=== PATIENT | female | born 1995 | race Caucasian/White ===

== ENCOUNTER 2017-11-28 15:26 | Outpatient (REF) | payer SELFPAY ==
--- NOTE | 2017-11-28 15:00 | PAPFT_PTH ---
PATIENT: Ghada Kirk LOC: [facility] U#:[id number] AGE/SX: 22/F ROOM: RE11/28/[address]: Robin Thomas RN : 1995 BED: DIS: 11/28/2017 SPEC #: [id number] RECD: 11/28/17 18:08 STATUS: WHITNEY REMelonie #: [id number] ALICIA: 11/28/17 15:[address]: Robin Thomas DEPT: [facility] Cytology RECD BY: Brandi Pal ENTERED: 11/28/17 18:08 SP TYPE: PAPFT PETROS DR: Jeniffer Gomez Tissues: 1 - CX/ENDOCX FOR PAP SMEARS Procedures: PAP THIN PREP/UVM Screening Comments: [id number]
[2017-11-28 18:24] LABS: *AMPHETAMINES SCREEN URINE Negative (Negative); *BARBITURATES SCREEN URINE Negative (Negative); *BENZODIAZEPINES SCREEN URINE Negative (Negative); Cannabinoids THC Negative (Negative); Cocaine Screen,Urine Negative (Negative); METHADONE URINE SCREEN Negative (Negative); OPIATES URINE SCREEN Negative (Negative)
[2017-11-28 18:27] LABS: Tricyclic Antidepressants Negative (Negative)
[2017-11-30 13:52] LABS: Chlamydia Result Negative; GC Result Negative; Specimen Description CERVIX
[2017-12-03 20:43] LABS: Buprenorphine Negative; Norbuprenorphine Negative
== END 2017-11-28 15:27 ==
LOC: LBN 15:26
PROVIDERS: Visit Provider Advanced Practice Midwife
DX: Z34.91 Encounter for supervision of normal pregnancy, unspecified, first trimester (principal); Z11.3 Encounter for screening for infections with a predominantly sexual mode of transmission; Z12.4 Encounter for screening for malignant neoplasm of cervix
CPT/HCPCS: 80307; 87491; 87591; 88142; 87086

== ENCOUNTER 2017-12-26 11:13 | Outpatient (CLI) | payer OTHER, SELFPAY ==
[2017-12-26 12:01] LABS: Abs Immature Grans 0.02 k/cumm (0.0-0.09); Absolute Basophil Count 0.01 k/cumm (0.0-0.2); Absolute Eosinophil Count 0.16 k/cumm (0.0-0.7); Absolute Lymphocyte Count 1.62 k/cumm (1.2-3.4); Absolute Monocyte Count 0.57 k/cumm (0.11-0.7); Absolute Neutrophil Count 7.39 k/cumm (1.2-6.7); Basophils % 0.1; Eosinophils % 1.6; HCT 34.8 % (36.0-46.0); HGB 11.8 g/dL (12.0-15.5); Immature Grans % 0.2; Lymphocytes % 16.6; Mean Corp. HGB Concentration 33.9 g/dL (32.0-36.0); Mean Corpuscular Hemoglobin 29.9 pg (27.0-33.0); Mean Corpuscular Volume 88.1 fL (80-95); Mean Platelet Volume 9.7 fL (8.0-11.0); Monocytes % 5.8; Neutrophils % 75.7; Platelet Count 221 x1000/uL (130-400); RBC 3.95 m/cumm (4.00-5.20); RBC Distribution Width 12.9 % (11.7-14.6); White Blood Cell Count 9.77 k/cumm (4.4-10.8)
[2017-12-26 13:03] LABS: TSH (W/Ref FT4) 1.95 uIU/mL (0.358-3.74)
[2017-12-27 11:38] LABS: Hepatitis B Surface Ag Negative (NEGAT)
[2017-12-27 12:07] LABS: HIV-1/2 Ag & Ab Screen Negative (NEGAT); Hepatitis C Ab w Rflx HCV PCR Negative (NEGAT)
[2017-12-27 13:24] LABS: Syphilis Serology (RPR) Negative (Negative)
[2017-12-27 13:29] LABS: Rubella IgG Ab (UVM) Positive
== END 2017-12-26 11:33 ==
PROVIDERS: Advanced Practice Midwife; Visit Provider Advanced Practice Midwife
DX: Z34.91 Encounter for supervision of normal pregnancy, unspecified, first trimester (principal); Z01.84 Encounter for antibody response examination
CPT/HCPCS: 36415; 80055; 86850; 86900; 86901; 84443

== ENCOUNTER 2018-01-05 12:11 | Outpatient (CLI) | payer OTHER, SELFPAY ==
[2018-01-08 12:47] LABS: AFP 41.9 ng/mL; Calculated age at EDD 24 years; Cigarette smoking status non-smoker; GA used in risk estimate Scan estimate; INHIBIN 152 pg/mL; IVF Pregnancy No; Initial or repeat testing Initial testing; Insulin dependent diabetes No; Maternal Weight 167 lbs; Number of Fetuses 1; Physician Phone Number 802-748-7300; Prev Down(T21)/Trisomy Pregnan No; Prev Pregnancy w/NTD No; RECOMMENDED FOLLOW UP None.; Results Summary Normal risk; hCG, TOTAL 20.3 IU/mL; hCG, TOTAL MoM 0.98 MoM; uE3 1.26 ng/mL; uE3 MoM 0.86 MoM
[2018-01-12 08:10] LABS: Result Summary NEGATIVE; Specimen WB Whole Blood
== END 2018-01-05 12:31 ==
PROVIDERS: Visit Provider Advanced Practice Midwife
DX: Z34.92 Encounter for supervision of normal pregnancy, unspecified, second trimester (principal); Z36.89 Encounter for other specified antenatal screening; Z13.228 Encounter for screening for other metabolic disorders
CPT/HCPCS: 36415; 81511; 81220

== ENCOUNTER 2018-01-10 00:24 | Outpatient (CLI) | payer OTHER, SELFPAY ==
--- NOTE | 2018-01-10 10:18 | DI.US_ITS ---
Many abnormalities cannot be diagnosed. A normal exam does not exclude a congenital anomaly. Radiology No. LMP: Exam Date: 01/10/18 [facility] wks days on EDC ([facility]) 06/04/18 Confirmed: HISTORY: SUPERVISION OF NORMAL ,Z34.90 ---- PREDICTED GESTATIONAL AGE NUMBER 19.2 weeks with a range of 18.2 week to 20.2 weeks. 1 Determined by___1STUS___LMP___HISTORY Info. pertaining to fetus # PLACENTA PRESENTATION Grade I Cephalic__X_ Anterior___Posterior___ Breech____ Right Left Transverse(head right___ Fundal___Low-lying___Previa___ Transverse(head left___ Varying BIOMETRY AMNIOTIC FLUID BPD: 45 mm 19.4 weeks Normal HC: 172 mm 19.5 weeks AC: 140 mm 19.3 weeks FL: 130 mm 19.2 weeks AMNIOTIC FLUID INDEX >26 WK CRL: mm weeks Cisterna Magna: 19 mm CI: 76 RUQ: LUQ Cerebellum: 0.31 cm EFW: 290 grams 52nd Percentile RLQ: LLQ Total: cms Composite AGE= 19.4 wks EDC by US__06/02/18 BIOPHYSICAL PROFILE ANATOMY IDENTIFIED SCORE 0/2 Heart: 4-Chamber__X_Rate:BPM___155__ LVOT: X____ RVOT:____X____ Amniotic Fluid(>2cms)____ Stomach:___X____ Kidneys:___X____ Respirations (>30 secs) Bladder:____X____ Post. Fossa:___X Body Flex/Extension 3 vessel cord:__X Ventricles: X cord insertion:____X_ Lips:_NOT SEEN___ Extremity Flex/Extension spinal morphology:__X Nose: NOT SEEN Total Score= Palate:__NOT WELL SEEN NS=not seen Routine examination was performed. There is a single living intrauterine gestation. Estimated sonographic age is 19 weeks 4 days. The fetus is in the cephalic presentation. heart rate is 155 beats per minute. No abnormalities were identified. The face and palate were not visualized well on this examination and the patient is scheduled to return 01/16 for repeat evaluation. The placenta shows no evidence of previa. Amniotic fluid is within normal limits. Estimated weight is 296 grams. IMPRESSION: Single living intrauterine gestation. Estimated sonographic age is 19 weeks 4 days. The patient is scheduled to return for evaluation of the facial structures on 01/16/18.
== END 2018-01-10 00:44 ==
PROVIDERS: Visit Provider Advanced Practice Midwife
DX: Z34.92 Encounter for supervision of normal pregnancy, unspecified, second trimester (principal)
CPT/HCPCS: 76805

== ENCOUNTER 2018-01-16 00:41 | Outpatient (CLI) | payer OTHER, SELFPAY ==
--- NOTE | 2018-01-16 09:48 | DI.US_ITS ---
SYMPTOMS/DIAGNOSIS: FACIAL F/U LIMITED OB ULTRASOUND: Many abnormalities cannot be diagnosed. A normal exam does not exclude a congenital anomaly. Radiology No. [id number] LMP: Exam Date: 01/16/18 [facility] wks days on EDC ([facility]) 06/04/18 Confirmed: HISTORY: ---- PREDICTED GESTATIONAL AGE NUMBER 20+1 weeks with a range of 19+1 weeks to 21+1 weeks. 1 Determined by_X__1STUS___LMP___HISTORY PLACENTA PRESENTATION Grade I Cephalic___ Anterior___Posterior_X__ Breech____ Right Left Transverse(head right)_X__ Fundal___Low-lying___Previa___ Transverse(head left___ Varying BIOMETRY AMNIOTIC FLUID BPD: mm weeks Normal HC: mm weeks AC: mm weeks FL: mm weeks AMNIOTIC FLUID INDEX >26 WK CRL: mm weeks Cisterna Magna: mm CI: RUQ: LUQ Cerebellum: cm EFW: grams Percentile RLQ: LLQ Total: cms Composite AGE= 20+1 wks EDC by US: 06/04/18 BIOPHYSICAL PROFILE ANATOMY IDENTIFIED SCORE 0/2 Heart: 4-Chamber___Rate:BPM 149 LVOT: RVOT: Amniotic Fluid(>2cms)____ Stomach: Kidneys: Respirations (>30 secs) Bladder: Post. Fossa: Body Flex/Extension 3 vessel cord: Ventricles: cord insertion: Lips:_X___ Extremity Flex/Extension spinal morphology: Nose:__X___ Total Score= Palate:___X____ NS=not seen
== END 2018-01-16 01:01 ==
PROVIDERS: Visit Provider Advanced Practice Midwife
DX: Z34.92 Encounter for supervision of normal pregnancy, unspecified, second trimester (principal); Z36.2 Encounter for other antenatal screening follow-up
CPT/HCPCS: 76815

== ENCOUNTER 2018-03-16 10:58 | Outpatient (CLI) | payer OTHER, MEDICAID, SELFPAY ==
[2018-03-16 12:27] LABS: HCT 33.3 % (36.0-46.0); Mean Corpuscular Hemoglobin 28.8 pg (27.0-33.0); Mean Corpuscular Volume 87.2 fL (80-95); Mean Platelet Volume 10.4 fL (8.0-11.0); Platelet Count 218 x1000/uL (130-400); RBC 3.82 m/cumm (4.00-5.20); RBC Distribution Width 12.6 % (11.7-14.6); White Blood Cell Count 10.11 k/cumm (4.4-10.8)
[2018-03-16 12:31] LABS: Glucose,1 Hr (Glucola) 97 mg/dL (80-140)
== END 2018-03-16 11:18 ==
PROVIDERS: Visit Provider Nurse Practitioner
DX: Z34.93 Encounter for supervision of normal pregnancy, unspecified, third trimester (principal)
CPT/HCPCS: 36415; 82950; 85027; 86850

== ENCOUNTER 2018-03-23 09:11 | Outpatient (CLI) | payer OTHER, MEDICAID, SELFPAY | END 2018-03-23 09:31 | PROVIDERS: Visit Provider Nurse Practitioner | DX: Z34.93 Encounter for supervision of normal pregnancy, unspecified, third trimester (principal) | CPT/HCPCS: 36415; 86850; 90384 ==

== ENCOUNTER 2018-05-11 11:44 | Outpatient (REF) | payer MEDICAID, SELFPAY | END 2018-05-11 12:04 | LOC: LBN 11:44 | PROVIDERS: Visit Provider Advanced Practice Midwife | DX: Z34.93 Encounter for supervision of normal pregnancy, unspecified, third trimester (principal); Z36.85 Encounter for antenatal screening for Streptococcus B | CPT/HCPCS: 87081 ==

== ENCOUNTER 2018-06-01 19:55 | Inpatient (IN) | payer MEDICAID, SELFPAY ==
[2018-06-01] MEDS: Lactated Ringers 1,000 ML 125 ML IV (22:31)
[2018-06-01 22:41] LABS: HGB 10.3 g/dL (12.0-15.5); Mean Corp. HGB Concentration 32.2 g/dL (32.0-36.0); Mean Corpuscular Hemoglobin 25.9 pg (27.0-33.0); Mean Corpuscular Volume 80.6 fL (80-95); Mean Platelet Volume 10.9 fL (8.0-11.0); Platelet Count 243 x1000/uL (130-400); RBC 3.97 m/cumm (4.00-5.20); RBC Distribution Width 13.3 % (11.7-14.6); White Blood Cell Count 14.89 k/cumm (4.4-10.8)
[2018-06-02] MEDS: Lactated Ringers 1,000 ML 125 ML IV (02:33)
[2018-06-02] MEDS: Oxytocin 10 UNITS/ML VIAL (04:58)
[2018-06-02 07:30] VITALS: RESP 16
[2018-06-02] MEDS: Hamamelis Leaf/Glycerin 100 EACH BOX PR (08:35)
[2018-06-02] MEDS: Acetaminophen 325 MG TAB 650 MG PO ×2 (16:05→21:25)
[2018-06-02] MEDS: Normal Saline Flush 10 ML SYR IVP ×2 (16:05→21:27)
[2018-06-03] MEDS: Acetaminophen 325 MG TAB 650 MG PO ×2 (07:49→12:21)
[2018-06-03 07:51] LABS: HGB 9.9 g/dL (12.0-15.5); Mean Corp. HGB Concentration 31.9 g/dL (32.0-36.0); Mean Corpuscular Hemoglobin 26.2 pg (27.0-33.0); Mean Platelet Volume 10.5 fL (8.0-11.0); Platelet Count 226 x1000/uL (130-400); RBC 3.78 m/cumm (4.00-5.20); RBC Distribution Width 13.6 % (11.7-14.6); White Blood Cell Count 13.37 k/cumm (4.4-10.8)
[2018-06-03] MEDS: Hamamelis Leaf/Glycerin 100 EACH BOX PR (11:04)
[2018-06-03] MEDS: Ibuprofen 600 MG TAB PO (11:04)
== END 2018-06-03 14:45 | disposition home or self-care (01) | DRG 807 ==
PROVIDERS: Admitting Provider Advanced Practice Midwife; Visit Provider Advanced Practice Midwife
DX: O99.62 Diseases of the digestive system complicating childbirth (principal); Z37.0 Single live birth; Z3A.39 39 weeks gestation of pregnancy; O99.354 Diseases of the nervous system complicating childbirth; K21.9 Gastro-esophageal reflux disease without esophagitis; G47.00 Insomnia, unspecified; Z30.430 Encounter for insertion of intrauterine contraceptive device
CPT/HCPCS: 58300; 36415; 85027; 85461; 86850; 86900; 86901; J2590

== ENCOUNTER 2018-07-17 15:49 | Outpatient (REF) | payer OTHER, MEDICAID, SELFPAY | END 2018-07-17 16:09 | LOC: LBN 15:49 | PROVIDERS: Visit Provider Advanced Practice Midwife | DX: R69 Illness, unspecified (principal) | CPT/HCPCS: 87480; 87510; 87660 ==

== ENCOUNTER 2022-06-27 10:54 | Outpatient (REF) | payer MEDICAID, SELFPAY ==
--- NOTE | 2022-06-27 10:00 | PAPFT_PTH ---
PATIENT: Ghada Kirk LOC: [facility] U#:[id number] AGE/SX: 27/F ROOM: RE06/27/[address]: Cecilia Loya : 1995 BED: DIS: 06/27/2022 SPEC #: [id number] RECD: 06/27/22 17:55 STATUS: WHITNEY REQ #: [id number] ALICIA: 06/27/22 10:[address]: Cecilia Ramon DEPT: [facility] Cytology RECD BY: Brandi Pal ENTERED: 06/27/22 17:55 SP TYPE: PAPFT PETROS DR: Azul Orellana APRN Tissues: 1 - CX/ENDOCX FOR PAP SMEARS Procedures: PAP THIN PREP/UVM Screening Comments: [id number]
== END 2022-06-27 10:55 | disposition home or self-care (01) ==
LOC: LBN 10:54
PROVIDERS: PCP Nurse Practitioner; Visit Provider Advanced Practice Midwife
DX: N89.8 Other specified noninflammatory disorders of vagina (principal); Z12.4 Encounter for screening for malignant neoplasm of cervix
CPT/HCPCS: 88142; 87480; 87510; 87660

== ENCOUNTER 2022-10-27 15:22 | Emergency (ER) | payer MEDICAID, SELFPAY ==
[2022-10-27 15:23] VITALS: BP 121/88; PULSE 83; RESP 14; TEMP 36.4; O2SAT 100
--- NOTE | 2022-10-27 15:33 | ED.GENADUL_ITS ---
Discharge Plan Disposition Patient Disposition: Home Condition: Stable Discharge Details Clinical Impression: Abnormal vaginal bleeding Primary Care Provider: Azul Orellana ED Provider: Aide Longoria Home Meds and New Rx's Prescriptions: No Action Mirena 20 mcg/24 hours (5 yrs) 52 mg intrauterine device 1 device IY ONCE multivitamin tablet 1 tab PO DAILY Discharge Instructions Instructions: Abnormal (Dysfunctional) Uterine Bleeding (ED) Additional Instructions: Ultrasound shows a low lying IUD, no evidence of ovarian cysts. Keep yourself hydrated and follow up with BANQUET KITCHEN SUPERVISOR as needed. Return for any dizziness, lightheadedness, or bleeding more than 1 pad an hour. Please take Tylenol or Ibuprofen with food every 4-6 hours as needed for pain and swelling. Follow up with primary care provider in 3-5 days. Return to ED sooner if any worsening or concerns. Increase oral fluids. Referrals: Azul Orellana, LABORATORY DEVELOPMENT TECHNICIAN [Primary Care Provider] - 2 weeks Medical Decision Making 27 year old female presents to ED with Vaginal bleeding, cramping which began last night. Patient does have an IUD that was placed in 2019 and gets irregular periods. She reports that she has gone through a super tampon in less than 3 hours. She did take a Pamprin last night which did little to nothing to help the cramping. She denies any dizziness lightheadedness or fainting. She is sexually active. Vital signs are stable. Work-up ordered including urine test, CBC CMP IV normal saline. Medical diagnosis includes but not limited to menorrhagia, abnormal vaginal bleeding, ectopic , miscarriage. CBC shows no leukocytosis H&H within normal limits, neutrophils 6.89, CMP largely within normal limits. Ultrasound shows low-lying IUD as noted below. I did offer to remove the IUD which patient declined at this time. On reevaluation she feels much better. She has received a liter of normal saline. Did discuss home care and strict return instructions she verbalized understanding. Findings are most consistent with dysmenorrhagia This text was generated using [employer] Mediaation system, please disregard any oddities of phrase or misspellings. Imaging Data Radiologic Study: Imaging: Ultrasound Radiologist's impression: FINDINGS: UTERUS: Position: Anteverted. Size: 8.3 long by 4.3 AP by 4.8 transverse cm Endometrium: 0.5 cm. Normal for patient's menstrual status. The IUD is seen in the lower uterine segment of the endometrial canal. Myometrium: Unremarkable. Cervix: Unremarkable. OVARIES: Right: 3 x 1.7 x 2.2 cm Cyst or mass: No suspicious cystic or solid masses. Left: 2.7 x 2.4 x 2.3 cm Cyst or mass: No suspicious cystic or solid masses. DOPPLER: Color: Symmetric and uniform flow to both ovaries. CUL-DE-SAC: Free fluid: None. Other: None. IMPRESSION: 1. Normal-appearing uterus with endometrial stripe within normal limits. 2. Unremarkable bilateral ovaries. 3. The IUD does not appear to be in good position. It lies in the lower uterine segment portion of the endometrial canal. Lab Data Lab results reviewed: Yes I reviewed the patient's lab results. Labs: Laboratory Tests Range/Units 10/27/22 10/27/22 17:34 17:34 WBC (4.4-10.8) 10^3/uL 10.12 RBC (3.93-5.22) 10^6/uL 4.52 Hgb (11.2-15.7) g/dL 13.3 Hct (36.0-46.0) % 39.2 MCV (80-95) fL 87 MCH (27.0-33.0) pg 29.4 MCHC (32.0-36.0) % 33.9 RDW (11.7-14.6) % 12.2 Plt Count (130-400) 10^3/uL 276 MPV (8.0-11.0) fL 9.7 Immature Gran % 0.5 Neutrophils % 68.1 Lymphocytes % 24.3 Monocytes % 6.2 Eosinophils % 0.6 Basophils % 0.3 Nucleated RBC % (0.0-0.3) % 0.0 Absolute Neutrophils (1.2-6.7) 10^3/uL 6.89 H Absolute Lymphocytes (1.2-3.4) 10^3/uL 2.46 Absolute Monocytes (0.1-0.8) 10^3/uL 0.63 Absolute Eosinophils (0.0-0.7) 10^3/uL 0.06 Absolute Basophils (0.0-0.2) 10^3/uL 0.03 Sodium (136-145) mmol/L 141 Potassium (3.5-5.1) mmol/L 3.7 Chloride (98-107) mmol/L 105 Carbon Dioxide (21.0-32.0) mmol/L 28.0 Anion Gap (3-11) mmol/L 8.0 BUN (7-18) mg/dL 14 Creatinine (0.55-1.02) mg/dL 0.8 Est GFR (CKD-EPI 2020) (mL/min/1.73m2) 102.86 Glucose (74-106) mg/dL 98 Calcium (8.5-10.1) mg/dL 9.3 Total Bilirubin (0.2-1.0) mg/dL 0.3 AST (15-37) U/L 12 L ALT (14-59) U/L 21 Alkaline Phosphatase (46-116) U/L 49 Total Protein (6.4-8.2) g/dL 8.2 Albumin (3.4-5.0) g/dL 4.5 HPI General Mode of arrival: ambulatory . Date/Time Provider Initiated Documentation: 10/27/22 15:29 . Limitations to Documentation: no limitations . Information obtained by: patient, RN notes reviewed and old records reviewed . HPI Narrative: 27 year old female presents to ED with Vaginal bleeding, cramping which began last night. Patient does have an IUD that was placed in 2018 and gets irregular periods. She reports that she has gone through a super tampon in less than 3 hours. She did take a Pamprin last night which did little to nothing to help the cramping. She denies any dizziness lightheadedness or fainting. She is sexually active. Vital signs are stable. Related Data Home Medications Medication Instructions Recorded Confirmed levonorgestrel 21 mcg/24 hours (8 1 device intrauterine ONCE 07/17/18 10/27/22 yrs) 52 mg intrauterine device (Mirena) multivitamin 1 tab PO DAILY 07/17/18 10/27/22 Allergies Allergy/AdvReac Type Severity Reaction Status Date / Time Penicillins Allergy Severe Hives Verified 06/27/22 09:39 General Stated Complaint: BANQUET KITCHEN SUPERVISOR LIZETTE: 3 Review of Systems All systems reviewed & are unremarkable except as noted in HPI and below Gastrointestinal Gastrointestinal: Reports abdominal pain Genitourinary Genitourinary: Reports as per HPI and Reports menorrhagia PFSH All Active Problems (Updated 10/27/22 @ 18:51 by Aide Longoria NP) Abnormal vaginal bleeding (Acute) Vaginal discharge (Acute) Medical History (Updated 10/27/22 @ 18:51 by Aide Longoria NP) Dysuria Insomnia Reflux esophagitis Surgical History (Updated 05/31/22 @ 09:17 by Azul Orellana NP) History of repair of ACL w/Meniscus Repair- Left, age 21 Family History (Updated 05/30/22 @ 13:42 by Emily Monet) Father Depression Paternal Grandfather Alcohol use disorder Depression Maternal Grandmother Cancer Lung Paternal Grandmother Depression Social History (Updated 05/31/22 @ 09:07 by Lainey Bull LPN) Smoking/Tobacco Use Status: Never Smoking risk assessment performed?: Yes Alcohol Intake: current Alcohol Intake frequency: holidays/special occasions only Alcohol type: beer Drug use: Never Substance use type: does not use Adopted: No Caregiver/Support person: No Foster care: No Household members: significant other and family Housing: house Number of Children: 1 Communication Needs: None Education Level: college Details: Bachelor's Degree Do you need help understanding health information?: Never current occupation: Med Asst, [employer] Pets and animals: Yes Pets and animals: dog(s) Sexually active: Yes Do you think of yourself as: straight/heterosexual Current gender identity: female What is your relationship status?: living with partner How often do you talk on the phone with friends or family?: three or more times per week How often do you get together with friends or relatives?: twice per week Do you belong to any clubs or organized social groups?: no Panel score (0-1 are the most socially isolated patients): 2 What type of physical activity do you participate in: weight lifting and running Duration: 45-60 minutes/day Frequency: 5-6 times per week Sandee/Oriental Orthodox: None Special sandee needs: No Seatbelt use: always Helmet use: Yes Drive intox or ride w/intox cement mixer driver: No Water heater temp set <120 deg: No Working smoke detector in home: Yes Fire extinguisher in home: Yes Carbon monox detector in home: Yes Firearms in home: No Do you feel safe at home: Yes Do you feel safe in your relationship?: Yes Victim of physical abuse: No Victim of emotional abuse: No Victim of sexual abuse: No History History 2 Para 1 Hx # Term Pregnancies 1 Multiple births 0 Hx # Pregnancies 0 Ectopic pregnancies 0 AB induced 0 Hx Number of Living Children 1 AB spontaneous 1 Past Pregnancies Del. Date GA/Weeks # Preg Succ Route Wgt Sex Labor Lgth Anesth esia Location Prov Complic 06/02/18 39 No vaginal 3260.195 g Female 16 hrs. 5 min. Robin Johnson cnm Delivery Date: 06/02/18 Last Updated by: Cecilia Loya CNM poor relief from epidural. Used nitrous oxide after epidural. vomiting from nitrous. Sublimity Exam Narrative Exam Narrative: Constitutional: Alert and oriented x3. Appears stated age. Normal body habitus. Head: Normocephalic, no trauma. Eyes: Pupils PERRL, Red reflex noted, EOM's intact. Eyelids symmetrical without lesions, discharge, or swelling. ENT: Bilateral TM's WNL, External ear normal to inspection, no mastoid TTP, swelling, or erythema, Nasal turbinates WNL, no nasal discharge. Normal dentition, Posterior pharynx WNL, no exudate. Chest: RRR, Normal S1, S2, distal pulses intact. Resp: Lungs clear to auscultation bilaterally, no wheezes, rales, or rhonchi. Abdomen: Soft, non-distended, Normoactive bowel sounds all 4 quads. Mild amount of tenderness suprapubically with palpation. Musculoskeletal: Normal gait, 5/5 strength to all four extremities. Skin: No suspicious rashes or lesions. Capillary refill less than 2 sec. Neurologic: Cranial nerves II-XII intact. Alert and oriented x 3. Motor: No deficits noted. Sensory: Intact bilaterally all 4 extremities. Hematologic/Lymphatic: No ecchymosis, no lymphadenopathy. Course Vital Signs Vital signs: Vital Signs Temperature 36.4 C L 10/27/22 15:23 Pulse 83 10/27/22 15:23 Respiratory Rate 14 10/27/22 15:23 Blood Pressure 121/88 10/27/22 15:23 Pulse Oximetry 100 10/27/22 15:23 Temperature 36.4 C L 10/27/22 15:23 Temperature Source Skin 10/27/22 15:23 Pulse 83 10/27/22 15:23 Respiratory Rate 14 10/27/22 15:23 Blood Pressure 121/88 10/27/22 15:23 Blood Pressure Position Sitting 10/27/22 15:23 Pulse Oximetry 100 10/27/22 15:23 Oxygen Delivery Method Room Air 10/27/22 15:23 Oxygen Flow Rate 0 10/27/22 15:23 Pain Level 7 10/27/22 15:23
--- NOTE | 2022-10-27 15:47 | DI.US_ITS ---
Exam(s) US PELVIS TRANSVAGINAL EXAM: US PELVIS TRANSVAGINAL CLINICAL HISTORY: Vaginal bleeding, Pelvic cramping IUD placement. TECHNIQUE: Transabdominal and transvaginal pelvic ultrasound was performed using standard protocol. COMPARISON: US US OB f/u facial/lvot/rvot from 01/16/2018 FINDINGS: UTERUS: Position: Anteverted. Size: 8.3 long by 4.3 AP by 4.8 transverse cm Endometrium: 0.5 cm. Normal for patient's menstrual status. The IUD is seen in the lower uterine segm ent of the endometrial canal. Myometrium: Unremarkable. Cervix: Unremarkable. OVARIES: Right: 3 x 1.7 x 2.2 cm Cyst or mass: No suspicious cystic or solid masses. Left: 2.7 x 2.4 x 2.3 cm Cyst or mass: No suspicious cystic or solid masses. DOPPLER: Color: Symmetric and uniform flow to both ovaries. CUL-DE-SAC: Free fluid: None. Other: None. IMPRESSION: 1. Normal-appearing uterus with endometrial stripe within normal limits. 2. Unremarkable bilateral ovaries. 3. The IUD does not appear to be in good position. It lies in the lower uterine segment portion of t he endometrial canal. DATA REPOSITORY:
[2022-10-27 17:51] LABS: Abs Immature Grans 0.05 10^3/uL (0.0-0.06); Absolute Basophil Count 0.03 10^3/uL (0.0-0.2); Absolute Eosinophil Count 0.06 10^3/uL (0.0-0.7); Absolute Lymphocyte Count 2.46 10^3/uL (1.2-3.4); Absolute Monocyte Count 0.63 10^3/uL (0.1-0.8); Absolute Neutrophil Count 6.89 10^3/uL (1.2-6.7); Basophils % 0.3; Eosinophils % 0.6; HCT 39.2 % (36.0-46.0); HGB 13.3 g/dL (11.2-15.7); Immature Grans % 0.5; Lymphocytes % 24.3; MCH 29.4 pg (27.0-33.0); MCHC 33.9 % (32.0-36.0); MCV 87 fL (80-95); MPV 9.7 fL (8.0-11.0); Monocytes % 6.2; Neutrophils % 68.1; Platelet Count 276 10^3/uL (130-400); RBC 4.52 10^6/uL (3.93-5.22); RDW 12.2 % (11.7-14.6); RDW-SD 38.9 fL; WBC 10.12 10^3/uL (4.4-10.8)
[2022-10-27] MEDS: Normal Saline 1,000 ML 1000 ML IV (18:02)
[2022-10-27 18:07] LABS: ALT 21 U/L (14-59); AST 12 U/L (15-37); Albumin 4.5 g/dL (3.4-5.0); Alkaline Phosphatase 49 U/L (46-116); BUN 14 mg/dL (7-18); Bilirubin, Total 0.3 mg/dL (0.2-1.0); CREATININE 0.8 mg/dL (0.55-1.02); Calcium 9.3 mg/dL (8.5-10.1); Chloride 105 mmol/L (98-107); Estimated GFR 102.86 (mL/min/1.73m2); Glucose 98 mg/dL (74-106); Potassium 3.7 mmol/L (3.5-5.1); Sodium 141 mmol/L (136-145); Total Protein 8.2 g/dL (6.4-8.2)
[2022-10-27 19:13] VITALS: BP 124/91; PULSE 77; RESP 18; TEMP 36.2; O2SAT 99
== END 2022-10-27 19:17 | disposition home or self-care (01) ==
PROVIDERS: Emergency Provider Registered Nurse Emergency; PCP Nurse Practitioner
DX: N93.9 Abnormal uterine and vaginal bleeding, unspecified (principal)
CPT/HCPCS: 36415; 80053; 81025; 96360; 99284; 76830; 76856; 85025

== ENCOUNTER 2022-12-17 19:11 | Emergency (ER) | payer MEDICAID, SELFPAY ==
[2022-12-17 19:23] VITALS: BP 112/73; PULSE 87; RESP 16; TEMP 36.9; O2SAT 97
--- NOTE | 2022-12-17 19:48 | W.ED.GENAD ---
Discharge Plan Disposition Patient Disposition: Home Condition: Stable Discharge Details Clinical Impression: Strep pharyngitis Primary Care Provider: Azul Orellana ED Provider: Aide Longoria Home Meds and New Rx's Prescriptions: New clindamycin HCl 300 mg capsule 300 mg PO BID 10 Days Qty: 20 0RF Rx Instructions: Take one tablet by mouth twice daily x 10 days No Action multivitamin tablet 1 tab PO DAILY Mirena 21 mcg/24 hours (8 yrs) 52 mg intrauterine device 1 device IY ONCE Qty: 1 0RF Discharge Instructions Instructions: Strep Throat (ED) Additional Instructions: Please take the antibiotic twice daily with yogurt or probiotic as directed. Gargle with warm salt water up to 3 times daily. Please take Tylenol or Ibuprofen with food every 4-6 hours as needed for pain and swelling. Follow up with primary care provider in 3-5 days. Return to ED sooner if any worsening or concerns. Increase oral fluids. Stand Alone Forms: Work Release Referrals: Azul Orellana, WEB ANALYTICS DEVELOPER [Primary Care Provider] - 5 days Discharge Data Discharge Date/Time-TO BE ENTERED AT DEPARTURE: 12/17/22 20:14 Medical Decision Making 27-year-old female presents to the ER with a chief complaint of sore throat for the last 3 to 4 days. Rapid strep here on arrival is positive. Her significant other is also having symptoms. Who has had recurrent strep throat in the past. She is allergic to penicillin. Reports runny nose as well denies any productive cough. Does have a past medical history reflux insomnia dysuria. Patient and SO given Clindamycin here and to go. Rx written, instructed on salt water gargles and follow up. HPI General Date/Time Provider Initiated Documentation: 12/17/22 19:22. Related Data Home Medications Medication Instructions Recorded Confirmed multivitamin 1 tab PO DAILY 07/17/18 12/17/22 levonorgestrel 21 mcg/24 hours (8 1 device intrauterine ONCE #1 ea 11/02/22 12/17/22 yrs) 52 mg intrauterine device (Mirena) clindamycin HCl 300 mg capsule 300 mg PO BID Strep throat 10 days 12/17/22 #20 caps Previous Rx's Medication Instructions Recorded levonorgestrel 21 mcg/24 hours (8 1 device intrauterine ONCE #1 ea 11/02/22 yrs) 52 mg intrauterine device (Mirena) clindamycin HCl 300 mg capsule 300 mg PO BID Strep throat 10 days 12/17/22 #20 caps Allergies Allergy/AdvReac Type Severity Reaction Status Date / Time Penicillins Allergy Severe Hives Verified 12/17/22 19:25 General Stated Complaint: Sorethroat LIZETTE: 4 Review of Systems All systems reviewed & are unremarkable except as noted in HPI and below ENT Ears, Nose, Mouth, and Throat: Reports as per HPI, Reports nasal obstruction, Reports sinus pain and Reports sore throat Cardiovascular Cardiovascular: Denies dyspnea Respiratory Respiratory: Denies cough and Denies dyspnea Gastrointestinal Gastrointestinal: Denies diarrhea, Denies nausea and Denies vomiting PFSH All Active Problems (Updated 12/17/22 @ 20:03 by Aide Longoria NP) Strep pharyngitis (Acute) IUD surveillance (Acute) [facility] 11/2022 Medical History Dysuria Insomnia Reflux esophagitis Surgical History History of repair of ACL w/Meniscus Repair- Left, age 21 Family History Father Depression Paternal Grandfather Alcohol use disorder Depression Maternal Grandmother Cancer Lung Paternal Grandmother Depression Social History Smoking/Tobacco Use Status: Never Smoking risk assessment performed?: Yes Alcohol Intake: current Alcohol Intake frequency: holidays/special occasions only Alcohol type: beer Drug use: Never Substance use type: does not use Adopted: No Caregiver/Support person: No Foster care: No Household members: significant other and family Housing: house Number of Children: 1 Communication Needs: None Education Level: college Details: Bachelor's Degree Do you need help understanding health information?: Never current occupation: Behavior Support Specialist, [employer] Pets and animals: Yes Pets and animals: dog(s) Sexually active: Yes Do you think of yourself as: straight/heterosexual Current gender identity: female What is your relationship status?: living with partner How often do you talk on the phone with friends or family?: three or more times per week How often do you get together with friends or relatives?: twice per week Do you belong to any clubs or organized social groups?: no Panel score (0-1 are the most socially isolated patients): 2 What type of physical activity do you participate in: weight lifting and running Duration: 45-60 minutes/day Frequency: 5-6 times per week Sandee/Jehovah'S Witness: None Special sandee needs: No Seatbelt use: always Helmet use: Yes Drive intox or ride w/intox meals on wheels driver: No Water heater temp set <120 deg: No Working smoke detector in home: Yes Fire extinguisher in home: Yes Carbon monox detector in home: Yes Firearms in home: No Do you feel safe at home: Yes Do you feel safe in your relationship?: Yes Victim of physical abuse: No Victim of emotional abuse: No Victim of sexual abuse: No History History 2 Para 1 Hx # Term Pregnancies 1 Multiple births 0 Hx # Pregnancies 0 Ectopic pregnancies 0 AB induced 0 Hx Number of Living Children 1 AB spontaneous 1 Past Pregnancies Del. Date GA/Weeks # Preg Succ Route Wgt Sex Labor Lgth Anesthesia Location [facility] 06/02/18 39 No vaginal 3260.195 g Female 16 hrs. 5 min. Robin Johnson cnm Delivery Date: 06/02/18 Last Updated by: Cecilia Loya CNM poor relief from epidural. Used nitrous oxide after epidural. vomiting from nitrous. Marlon Exam HENCO Ears: hearing grossly normal bilaterally, external ears normal and TM's normal bilaterally General nose exam: external nose normal Mouth: oral mucosae normal, lip normal and tongue normal Teeth and gingiva: dentition normal Throat: uvula midline and posterior oropharynx abnormal erythema Resp Effort & Inspection: normal respiratory effort, able to speak in complete sentences and no audible wheezes Course Vital Signs Vital signs: Vital Signs Temperature 36.9 C 12/17/22 19:23 Pulse 87 12/17/22 19:23 Respiratory Rate 16 12/17/22 19:23 Blood Pressure 112/73 12/17/22 19:23 Pulse Oximetry 97 12/17/22 19:23 Temperature 36.9 C 12/17/22 19:23 Temperature Source Temporal Artery Scan 12/17/22 19:23 Pulse 87 12/17/22 19:23 Respiratory Rate 16 12/17/22 19:23 Respiratory Effort Normal 12/17/22 19:23 Blood Pressure 112/73 12/17/22 19:23 Blood Pressure Position Sitting 12/17/22 19:23 Pulse Oximetry 97 12/17/22 19:23 Pain Level 5 12/17/22 19:23 Lab/Test Results Lab/Test Results: POC Strep Test-[facility](Rapid) Start: 12/17/22 19:22 Freq: .Rapid Strep Test Status: Active Protocol: Document 12/17/22 19:34 CB (Rec: 12/17/22 19:34 [id number]) Strep test-[facility](Rapid)-POC POC-Strep test-[facility] (Rapid) Positive POC-Strep test-[facility] (Rapid) Positive
[2022-12-17] MEDS: Clindamycin 150 MG CAP 300 MG PO (19:57)
== END 2022-12-17 20:14 | disposition home or self-care (01) ==
PROVIDERS: Emergency Provider Registered Nurse Emergency; PCP Nurse Practitioner
DX: J02.0 Streptococcal pharyngitis (principal)
CPT/HCPCS: 87880; 99282

== ENCOUNTER 2024-11-22 15:09 | Outpatient (REF) | payer OTHER, SELFPAY | END 2024-11-22 15:10 | disposition home or self-care (01) | LOC: LBN 15:09 | PROVIDERS: PCP Nurse Practitioner; Visit Provider Obstetrics & Gynecology | DX: N90.7 Vulvar cyst (principal) | CPT/HCPCS: 88305; 88104 ==